=== PATIENT | female | born 1955 | race Caucasian/White ===

== ENCOUNTER 2020-02-23 08:10 | Day surgery (SDC) | payer MEDICARE ==
[2020-02-22 14:28] VITALS: BMI 32.9
[2020-02-23 08:29] LABS: #Eosinphils 0.2 thou/uL (0.0-0.7); #Lymphocytes 1.4 thou/uL (1.20-3.40); #Monocytes 0.5 thou/uL (0.11-0.59); #Neutrophils 2.9 thou/uL (1.40-6.50); %Basophils 0.8 % (0.0-1.0); %Eosinophils 4.3 % (0.0-10.0); %Lymphocytes 27.8 % (21.0-51.0); %Monocytes 10.2 % (0.0-10.0); Hemoglobin 12.9 g/dL (12.0-16.0); Mean Corpuscular HGB CONC 34.3 g/dL (32.0-36.0); Mean Corpuscular Hemoglobin 28.9 pg (27.0-31.0); Mean Corpuscular Volume 84.3 fL (78.0-98.0); Mean Platelet Volume 7.6 fL (7.4-10.4); Platelet Count 210 thou/uL (130-400); RBC Distribution Width 15.2 % (11.5-14.5); Red Blood Cell (RBC) Count 4.45 mill/uL (4.20-5.40); White Blood Cell (WBC) Count 5.1 thou/uL (4.8-10.8)
[2020-02-23 08:31] LABS: INR-International Normal Ratio 0.9; PTT 31.8 sec (22.9-36.1); Prothrombin Time 12.4 sec (12.0-14.7)
[2020-02-23] MEDS ORDERED: FLU VACC QS2020-21(65YR UP)/PF 240 MCG/0.7 ML SYRINGE IM ONE (09:00)
[2020-02-23 10:07] VITALS: BP 134/57; TEMP 97.6
[2020-02-23] MEDS ORDERED: Fentanyl 100 MCG/2 ML VIAL ONE (10:11)
[2020-02-23] MEDS ORDERED: Midazolam HCl 2 mg/2 ml Vial ONE (10:11)
[2020-02-23] MEDS ORDERED: Sodium Bicarbonate 2.5 MEQ/5 ML VIAL ONE (10:12)
--- NOTE | 2020-02-23 13:44 | CT ---
Random renal biopsy CT-guided HISTORY: Renal insufficiency. Proteinuria. FINDINGS: After explaining the procedure and answering all questions, limited CT imaging of the lower abdomen was performed with patient prone. Sterile technique, buffered local anesthesia, CT guidance, and a left posterior approach were used to carefully advance a 17-gauge trocar needle to the posterior cortex of the left kidney at the avascular zone near the inferior pole. Needle was carefully engaged into the cortex. Position confirm ed with CT. A total of 3 18-gauge core biopsy specimens were obtained and submitted to Dr. Marques from pathology who confirmed specimen adequacy. Needle was removed. No evidence of complication. Patient tolerated the procedure well and was eventua lly discharged in good condition. IMPRESSION : Technically successful CT-guided random renal biopsy. Pathology is pending.
--- NOTE | 2020-02-23 16:04 | CT ---
Random renal biopsy CT-guided HISTORY: Renal insufficiency. Proteinuria. FINDINGS: After explaining the procedure and answering all questions, limited CT imaging of the lower abdomen was performed with patient prone. Sterile technique, buffered local anesthesia, CT guidance, and a left posterior approach were used to carefully advance a 17-gauge trocar needle to the posterior cortex of the left kidney at the avascular zone near the inferior pole. Needle was carefully engaged into the cortex. Position confirm ed with CT. A total of 3 18-gauge core biopsy specimens were obtained and submitted to Dr. Marques from pathology who confirmed specimen adequacy. Needle was removed. No evidence of complication. Patient tolerated the procedure well and was eventua lly discharged in good condition. IMPRESSION : Technically successful CT-guided random renal biopsy. Pathology is pending. Transcribed Date/Time: 02/23/2020 4:03 PM
== END 2020-02-23 12:00 | disposition home or self-care (01) ==
LOC: CT 08:10
PROVIDERS: ATTEND Internal Medicine Nephrology
PROC: 0TB13ZX Excision of Left Kidney, Percutaneous Approach, Diagnostic (ICD-10-PCS; principal; 2020-02-23)
DX: I12.9 Hypertensive chronic kidney disease with stage 1 through stage 4 chronic kidney disease, or unspecified chronic kidney disease (principal); E11.22 Type 2 diabetes mellitus with diabetic chronic kidney disease; N18.30 Chronic kidney disease, stage 3 unspecified; D63.1 Anemia in chronic kidney disease; R80.9 Proteinuria, unspecified; M10.9 Gout, unspecified; E55.9 Vitamin D deficiency, unspecified; E78.5 Hyperlipidemia, unspecified; E03.9 Hypothyroidism, unspecified; Z79.84 Long term (current) use of oral hypoglycemic drugs; Z79.899 Other long term (current) drug therapy; Z88.5 Allergy status to narcotic agent
CPT/HCPCS: 36415; 50200; 77002; 85025; 85610; 85730; 88329; J2250; J3010